=== PATIENT | male | born 1960 | race Caucasian/White ===

== ENCOUNTER 2021-05-16 10:55 | Emergency (ER) | payer SELFPAY ==
--- NOTE | 2021-05-16 11:14 | EDM.PDOC ---
ED HPI GENERAL MEDICAL PROBLEM - General Chief Complaint: General Stated Complaint: BLADDER PREASSURE Time Seen by Provider: 05/16/21 11:13 - History of Present Illness INITIAL COMMENTS - FREE TEXT/NARRATIVE: Patient is unfortunate 60-year-old male who presents emerged from today with complaint of urinary retention. Patient reports that he has having difficulty voiding for the past 24 hours called his physician in the instruction, the emergency department further evaluation. The patient was seen by the physician 2 days ago was noted to have elevated PSA and nitrites in his urine was started on ciprofloxacin, patient denies any other medical problems reports he felt like he had a low-grade fever at home he has had no back pain no dysuria no frequency he has had urgency and retention ED ROS GENERAL - Review of Systems Review Of Systems: See Below Constitutional: Denies: Fever, Chills : Reports: Urgency, Urinary Retention ED EXAM, RENAL/ - Physical Exam Exam: See Below Exam Limited By: No Limitations General Appearance: Alert, WD/WN, Moderate Distress Neck: Normal Inspection, Supple, Non-Tender, Full Range of Motion Respiratory/Chest: No Respiratory Distress, Lungs Clear, Normal Breath Sounds, No Accessory Muscle Use, Chest Non-Tender Cardiovascular: Normal Peripheral Pulses, Regular Rate, Rhythm, No Edema, No Gallop, No JVD, No Murmur, No Rub GI/Abdominal: Normal Bowel Sounds, Soft, Other (bladder palpable to 2 cm superior to the umbilicus) Back Exam: Normal Inspection, Full Range of Motion, NT Extremities: Normal Inspection, Normal Range of Motion, Non-Tender, Normal Capillary Refill, No Pedal Edema Neurological: Alert, Oriented, CN II-XII Intact Skin Exam: Warm, Dry, No Rash Course - Vital Signs Text/Narrative:: 14 [place] coud Vazquez catheter placed by nd - Orders/Labs/Meds Orders: Active Orders 24 hr Category Date Time Status Insert Urinary Catheter [OM.PC] Q24H Care 05/16/21 11:15 Ordered Urinary Catheter Assessment [RC] ASDIRECTED Care 05/16/21 11:12 Active CULTURE URINE [RM] Stat Lab 05/16/21 11:55 Received Labs: Laboratory Tests 05/16/21 Range/Units 11:55 Urine Color [place] (YELLOW) Urine Appearance Slightly cloudy (CLEAR) Urine pH 5.0 (5.0-9.0) Ur Specific [place] 1.010 (1.005-1.030) Urine Protein 30 H (NEGATIVE) Urine Glucose (UA) Negative (NEGATIVE) Urine Ketones Negative (NEGATIVE) Urine Occult Blood Large H (NEGATIVE) Urine Nitrite Positive H (NEGATIVE) Urine Bilirubin Negative (NEGATIVE) Urine Urobilinogen 0.2 (0.2-1.0) mg/dL Ur Leukocyte Esterase Negative (NEGATIVE) Urine RBC >100 H /HPF Urine WBC 0-5 (0-5/HPF) /HPF Ur Epithelial Cells Rare (NOT SEEN) /HPF Urine Bacteria Rare (0-FEW/HPF) /HPF Urine Mucus Not seen (NOT SEEN) /LPF Departure - Departure Time of Disposition: 12:24 Disposition: Home, Self-Care 01 Condition: Good Clinical Impression: Retention of urine - Discharge Information *PRESCRIPTION DRUG MONITORING PROGRAM REVIEWED*: No *COPY OF PRESCRIPTION DRUG MONITORING REPORT IN PATIENT NAY: No Instructions: Indwelling Urinary Catheter Care, Adult Referrals: Karl Horan, [Ordering Only Provider] - Forms: ED Department Discharge Additional Instructions: Home, Rest, wear leg bag during the day, use catheter bag at night, follow-up with urology in 2 to 3 days for Vazquez catheter removal, if you are unable to get into urology please follow-up with your PCP, return to the emergency department for any worsening condition - My Orders Last 24 Hours: My Active Orders 05/16/21 11:12 Urinary Catheter Assessment [RC] ASDIRECTED 05/16/21 11:15 Insert Urinary Catheter [OM.PC] Q24H 05/16/21 11:55 CULTURE URINE [RM] Stat - Assessment/Plan Last 24 Hours: My Active Orders 05/16/21 11:12 Urinary Catheter Assessment [RC] ASDIRECTED 05/16/21 11:15 Insert Urinary Catheter [OM.PC] Q24H 05/16/21 11:55 CULTURE URINE [RM] Stat
== END 2021-05-16 12:52 | disposition home or self-care (01) ==
LOC: DL.ED 10:55
DX: R33.9 Retention of urine, unspecified (principal)
CPT/HCPCS: 51702; 81001; 87086; 99283-25